=== PATIENT | female | born 1985 | race African-American/Black ===

== ENCOUNTER 2020-02-07 21:01 | Emergency (ER) | payer OTHER ==
[~2020-02-07] VITALS: Ht 167.6 cm; Wt 65.8 kg
--- NOTE | 2020-02-07 21:37 | NUR ---
BIBS FOR C/O LLQ ABD PAIN X 1 WK. -N/V/D. URINE COLLECTED. PT AMBULATORY TO BED 4. WILL CONT TO MONITOR ,
[2020-02-07 22:06] LABS: APPEARANCE,URINE CLEAR (CLEAR); BILIRUBIN,URINE NEGATIVE (NEGATIVE); BLOOD, URINE NEGATIVE Ery/uL (NEGATIVE); COLOR,URINE YELLOW (YELLOW); KETONES,URINE NEGATIVE (NEGATIVE); LEUKOCYTE ESTERASE ,URINE NEGATIVE (NEGATIVE); NITRITE, URINE NEGATIVE (NEGATIVE); PROTEIN,URINE NEGATIVE (NEGATIVE); UGLUCOSE NEGATIVE (NEGATIVE); UROBILINOGEN,URINE 0.2 EU/dL (0.2)
--- NOTE | 2020-02-07 22:36 | NUR ---
US TECH AT BED SIDE
[2020-02-07 22:41] LABS: BASOPHILS % (AUTO) 0.5 % (0.0-2.0); EOSINOPHILS % (AUTO) 3.1 % (0.0-6.0); HEMATOCRIT 40 % (33-45); HEMOGLOBIN 12.6 g/dL (11.5-14.8); LYMPHOCYTES % (AUTO) 36.8 % (20.0-44.0); MEAN CORPUSCULAR HGB CONC 32 g/dl (31.0-36.0); MEAN CORPUSCULAR VOLUME 85 fL (82-100); MONOCYTES # (AUTO) 0.3 /CMM (0.1-1.30); MONOCYTES % (AUTO) 5.9 % (2.0-12.0); NEUTROPHILS # (AUTO) 2.9 /CMM (1.8-8.9); NEUTROPHILS % (AUTO) 53.7 % (43.0-81.0); PLATELET COUNT (AUTO) 148 /CMM (150-450); RED BLOOD CELL COUNT(AUTO) 4.68 MIL/uL (4.0-5.2); WHITE BLOOD COUNT (AUTO) 5.4 K/uL (4.3-11.0)
[2020-02-07 22:42] LABS: CALCIUM, SERUM 8.7 mg/dL (8.5-10.1); CREATININE 0.9 mg/dL (0.6-1.3); POTASSIUM 4.3 mmol/L (3.5-5.1)
[2020-02-07 22:46] LABS: ALBUMIN 3.6 g/dL (3.4-5.0); BILIRUBIN,DIRECT 0.1 mg/dL (0.0-0.2); BILIRUBIN,TOTAL 0.2 mg/dL (0.2-1.0); TOTAL PROTEIN, SERUM 7.5 g/dL (6.4-8.2)
--- NOTE | 2020-02-07 23:11 | NUR ---
DEGRASSE,MARSII D [employer] AT BED SIDE
[2020-02-07] MEDS ORDERED: IBUPROFEN 600 MG TABLET PO ONE ×2 (23:20→23:30)
--- NOTE | 2020-02-07 23:26 | NUR ---
PT MEDICALLY STABLE FOR D/C. Patient discharged to home in stable condition. Rx and Written and verbal after care instructions given. Patient verbalizes understanding of instruction.
[2020-02-07 23:34] VITALS: BP 133/75
== END 2020-02-07 23:34 | disposition home or self-care (01) ==
LOC: ER 21:03
DX: N83.202 Unspecified ovarian cyst, left side (principal); Z60.2 Problems related to living alone
CPT/HCPCS: 36415; 76856; 80048; 80076; 81001; 84703; 85025; 99284; A6403; 81000-TC

== ENCOUNTER 2020-05-08 14:59 | Emergency (ER) | payer OTHER ==
[~2020-05-08] VITALS: Ht 165.1 cm; Wt 65.8 kg
--- NOTE | 2020-05-08 15:20 | NUR ---
Patient came in to the er c/o burning sensation when urinating x 2 days. On room air, breathing evenly and unlabored. Kept comfortable, will continue to monitor accordingly.
--- NOTE | 2020-05-08 15:28 | NUR ---
urine collected and sent to lab
[2020-05-08 15:38] LABS: BILIRUBIN,URINE NEGATIVE (NEGATIVE); BLOOD, URINE NEGATIVE Ery/uL (NEGATIVE); COLOR,URINE YELLOW (YELLOW); LEUKOCYTE ESTERASE ,URINE NEGATIVE (NEGATIVE); NITRITE, URINE NEGATIVE (NEGATIVE); PH,URINE 7.5 (5.0-8.0); PROTEIN,URINE NEGATIVE (NEGATIVE); UGLUCOSE NEGATIVE (NEGATIVE); UROBILINOGEN,URINE 0.2 EU/dL (0.2)
--- NOTE | 2020-05-08 16:06 | NUR ---
Patient discharged to home in stable condition. Written and verbal after care instructions given. Patient verbalizes understanding of instruction.
[2020-05-08 16:07] VITALS: BP 118/75
== END 2020-05-08 16:07 | disposition home or self-care (01) ==
LOC: ER 15:07
DX: R30.0 Dysuria (principal); Z60.2 Problems related to living alone
CPT/HCPCS: 81001; 87086-TC

== ENCOUNTER 2022-08-03 14:56 | Emergency (ER) | payer OTHER ==
[~2022-08-03] VITALS: Ht 165.1 cm; Wt 76.2 kg
[2022-08-03 15:04] VITALS: BP 167/107
[2022-08-03] MEDS ORDERED: CIPR10DR LEFT EAR (15:13)
--- NOTE | 2022-08-03 15:18 | NUR ---
Patient discharged to home in stable condition. Written and verbal after care instructions given. Patient verbalizes understanding of instruction.
== END 2022-08-03 15:19 | disposition home or self-care (01) ==
LOC: ER 15:00
DX: H60.92 Unspecified otitis externa, left ear (principal); Z60.2 Problems related to living alone

== ENCOUNTER 2022-08-10 04:41 | Emergency (ER) | payer OTHER ==
[~2022-08-10] VITALS: Ht 165.1 cm; Wt 76.2 kg
[~2022-08-10 04:41] MED LIST: CIPR10DR LEFT EAR
[2022-08-10 05:07] VITALS: BP 123/78
--- NOTE | 2022-08-10 05:07 | NUR ---
BIBS. PAIN UNDER THE TOUNGE X 1 DAYS
--- NOTE | 2022-08-10 05:18 | NUR ---
Patient discharged to home in stable condition. Written and verbal after care instructions given. Patient verbalizes understanding of instruction.
== END 2022-08-10 05:19 | disposition home or self-care (01) ==
LOC: ER 04:43
DX: K12.0 Recurrent oral aphthae (principal); F17.200 Nicotine dependence, unspecified, uncomplicated; Z79.899 Other long term (current) drug therapy